=== PATIENT | male | born 1955 | race Caucasian/White ===

== ENCOUNTER 2025-04-13 06:25 | Inpatient (IN) | payer MEDICARE, BC, SELFPAY ==
[2025-04-13] VITALS (9 sets, daily range): BP systolic 123–145; BP diastolic 62–81; PULSE 78–98; RESP 16–20; TEMP 36.4–36.8; O2SAT 90–98
--- NOTE | 2025-04-13 06:39 | PD.EDRME ---
Rapid Medical Screening Exam RME Arrival date/time: 04/13/25 06:25 69-year-old male presents to the emergency department today for complaints of difficulty urinating patient reports having knee replacement approximately 10 days ago. Patient reports that he has had issues with urinating in the past patient does see Dr. Sepulveda urologist in [place] Chief Complaint: Urogenital-Male Vital signs: Vital Signs Temperature 98.3 F 04/13/25 06:32 Pulse Rate 84 04/13/25 06:32 Respiratory Rate 19 04/13/25 06:32 Blood Pressure 129/62 04/13/25 06:32 Pulse Oximetry (%) 98 04/13/25 06:32 Oxygen Delivery Method Room Air 04/13/25 06:32 Vital signs reviewed by provider: Yes Exam: On exam patient appears to be uncomfortable Clinical Impression: Labs and Christensen catheter ordered
[2025-04-13 07:08] LABS: Collection Type, Urine Clean Catch; Squamous Epithelial Cell,Urine 0 /hpf (0-5)
--- NOTE | 2025-04-13 07:09 | EDNOTE_ITS ---
ED Male Genitalurinary RME/HPI General Chief complaint: Urogenital-Male Stated complaint: UNABLE TO URINATE Arrival date/time: 04/13/25 06:25 RME / HPI RME / HPI Narrative: 04/13/25 06:25 69-year-old male presents to the emergency department today for complaints of difficulty urinating patient reports having knee replacement approximately 10 days ago. Patient reports that he has had issues with urinating in the past patient does see Dr. Sepulveda urologist in [place]. MAGAÑA MAIN ED EVALUATION 69 year old male with history of BPH and is s/p total right knee replacement on 04/04/2025 presents to the ED for evaluation of urinary hesitancy and urgency today. States he is having to urinate every 15 minutes and only dribbling small amounts of urine. Accompanied by discomfort to the suprapubic area. Patient r eportedly has had difficulty emptying his bladder since removal of the Christensen catheter he had placed during surgery 9 days ago. States he was started on Cipro for a Christensen infection which he has taken with no change in symptoms. No other associated symptoms reported. Patient states he is under the care of urologist Dr. Sepulveda in [place], [place] and will be scheduling an appointment soon. Exam: On exam patient appears to be uncomfortable Impression: Labs and Christensen catheter ordered Related Data Allergies Allergy/AdvReac Type Severity Reaction Status Date / Time No Known Allergies Allergy Verified 04/13/25 06:45 Review of Systems Review of Systems Systems Reviewed: All systems reviewed, normal except as documented Past Medical History Past Medical History CARDIAC: Positive Hypertension; Negative Congestive Heart Failure RESPIRATORY: Negative Chronic Obstructive Pulmonary Disease (COPD) GENITOURINARY: Positive Benign Prostatic Hyperplasia; Negative Renal Disease ENDOCRINE: Negative Diabetes Mellitus Type 1 or Diabetes Mellitus Type 2 Social History SMOKING STATUS: Never smoker ED Exam Narrative Physical exam: GENERAL APPEARANCE: alert and oriented x 4, well-developed, well-nourished, appears uncomfortable HEENT: Normocephalic, atraumatic; pupils equal, round, reactive to light; EOMI; mucous membranes pink, moist; oropharynx clear NECK: Supple LUNGS: CTABL; no wheezes, no rales, no rhonchi HEART: Regular rate, regular rhythm; normal S1, S2; no murmurs ABDOMEN: mildly distended; normal BS; soft, no tenderness, no guarding, no rebound; no masses, no organomegaly, no hernia BACK: no CVA tenderness EXTREMITIES: atraumatic; no edema NEUROLOGIC: awake; alert and oriented x4; cranial nerves II-XII grossly intact; no focal sensory or motor deficits PSYCHIATRIC: appropriate mood and affect SKIN: warm, dry, normal color; no rashes Course Quality Measures none Orders Category Date Time Status Bedside Blood Glucose Q2HX3 Care 04/13/25 10:50 Active EKG (ED ONLY) *Do not use* NOW Care 04/13/25 08:32 Completed Christensen [Urinary Catheter] NOW Care 04/13/25 06:39 Active Christensen to Leg Bag NOW Care 04/13/25 06:39 Ordered EKG (ED Only) Stat Exams 04/13/25 08:32 Draft CBC Stat Lab 04/13/25 07:58 Completed Comprehensive Metabolic Panel Stat Lab 04/13/25 07:58 Completed Renal Function Panel Stat Lab 04/13/25 11:12 Received UA, C/S IF [Urinalysis, C/S if Indicated] Stat Lab 04/13/25 06:51 Completed Urine Culture Stat Lab 04/13/25 06:51 Received ALBUTEROL RT 0.5ml [Proventil Rt 0.5ml] Med 04/13/25 10:50 Discontinued 10 mg INH X1 ONE Calcium Gluconate 10% Inj Med 04/13/25 08:32 Discontinued 1 gm IV X1 ONE Dextrose 50% Syr [D50w Syringe Abboject] Med 04/13/25 10:51 Discontinued 50 ml IV X1 ONE Glucagon Inj Med 04/13/25 10:50 Active 1 mg IM Q15MIN PRN Insulin Regular Med 04/13/25 10:50 Discontinued 5 unit IV X1 ONE Sod Polystyrene Sulfon Susp [Kayexalate Susp] Med 04/13/25 10:50 Discontinued 30 gm PO X1 ONE Sodium Chloride 0.9% 1000 ml [Ns] 1,000 ml Med 04/13/25 08:32 Discontinued IV 999 mls/hr Sodium Chloride 0.9% 1000 ml [Ns] 1,000 ml Med 04/13/25 09:25 Discontinued IV 999 mls/hr Sodium Chloride Rt Janki 0.9% [NS Rt Janki 0.9%] Med 04/13/25 10:50 Active 3 ml INH PRN PRN Vital Signs Vital signs: Vital Signs Temperature 98.3 F 04/13/25 06:32 Pulse Rate 84 04/13/25 06:32 Respiratory Rate 19 04/13/25 06:32 Blood Pressure 129/62 04/13/25 06:32 Pulse Oximetry (%) 98 04/13/25 06:32 Oxygen Delivery Method Room Air 04/13/25 06:32 Pulse ox is 98% on room air which is adequate. Urogenital - Male MDM Narrative MDM Narrative:: Lynnette Bunch am scribing for and in the presence of Dr. Magaña. Patient data External records reviewed:: [facility] previous records Clinical information provided by:: patient Social determinants that could affect healthcare access:: none Patient has the following chronic illnesses:: BPH and is s/p total right knee replacement on 04/04/2025 How is presenting disease/condition affected by chronic disease/condition?: exacerbated by Evaluation data The following diagnostics were reviewed and interpreted by me:: lab results and EKG tracing(s) (EKG @ 08:45 AM, normal sinus rhythm, rate 86, no acute ischemic changes, no STEMI. ) Lab and/or radiology exams considered but not ordered:: None Interpretation Summary: Hgb 7.8 Labs remarkable for acute renal failure and acute hyperkalemia Potassium 6.3, BUN 60, Creatinine 5.6, eGFR 10 Medications / Prescriptions Medications or Prescriptions considered but not ordered:: none Medication administrations:: Medication Administration History Glucagon (Glucagon Inj 1 Mg Vial) 1 mg IM Q15MIN PRN PRN Reason: BG <70, and no IV access Sodium Chloride (Sodium Chloride Rt Janki 0.9% 3 Ml Nebu) 3 ml INH PRN PRN PRN Reason: SOLN Stop: 05/13/25 10:49 Discontinued Medications Albuterol (Albuterol Rt 2.5 Mg/0.5 Ml Nebu) 10 mg INH X1 ONE Stop: 04/13/25 10:51 Last Admin: 04/13/25 11:15 Dose: 10 mg Documented By: AA Calcium Gluconate (Calcium Gluconate 10% Inj 1 Gm/10 Ml Vial) 1 gm IV X1 ONE Stop: 04/13/25 08:33 Last Admin: 04/13/25 08:44 Dose: 1 gm Documented By: AUSTEN Dextrose (Dextrose 50%-Water Inj 50 Ml Syringe) 50 ml IV X1 ONE Stop: 04/13/25 10:52 Last Admin: 04/13/25 11:20 Dose: 50 ml Documented By: AUSTEN Sodium Chloride (Ns) 1,000 mls @ 999 mls/hr IV .Q1H1M ONE Stop: 04/13/25 09:32 Last Infusion: 04/13/25 09:30 Dose: Infused Documented By: Admin: 04/13/25 08:44 Dose: 999 mls/hr Documented By: AUSTEN Sodium Chloride (Ns) 1,000 mls @ 999 mls/hr IV .Q1H1M ONE Stop: 04/13/25 10:25 Last Infusion: 04/13/25 10:31 Dose: Infused Documented By: Admin: 04/13/25 09:30 Dose: 999 mls/hr Documented By: AUSTEN Insulin Human Regular (Insulin Hum Regular 1 Unit/0.01 Ml (Per Unit)) 5 unit IV X1 ONE Stop: 04/13/25 10:51 Last Admin: 04/13/25 11:22 Dose: 5 unit Documented By: AUSTEN Co-signed By: PRATIBHA Sodium Polystyrene Sulfonate (Sod Polystyrene Sulfon Susp 15 Gm/60 Ml Btl) 30 gm PO X1 ONE Stop: 04/13/25 10:51 Last Admin: 04/13/25 11:20 Dose: 30 gm Documented By: AUSTEN See above Consultations Consultation(s) initiated? (list below): Yes Consultation #1 (Physician, Specialty, Details): See above Diagnosis Urogenital Male Differential Diagnosis: urinary tract infection, acute retention of urine and other (acute renal failure ) Most likely diagnosis given after review of the tests above:: Acute renal failure Hyperkalemia Admission Indicated Admission indicated?: indicated Admission Request Was there a request for admission?: Yes Admission Attestation Admission request attestation: Discussed case with [] from Hospitalist service regarding admission. Discussed patients ED course, exam findings, labs, and radiology results. The Hospitalist [agrees,declines] to accept the patient for admission. Disposition Plan Disposition Plan: Admit Discharge Plan Plan Patient Disposition: Admit Acute Care w/in Hospital Problem List Clinical Impression: Acute renal failure, Acute hyperkalemia Patient/Caregiver Discharge Instructions Print Language: Vietnamese Stand Alone Forms: Eli Award Info., Patient Portal Info Letter
[2025-04-13 07:14] LABS: Bilirubin,Urine 1+ (Negative); Blood,Urine Negative (Negative); Clarity,Urine Clear (Clear/Hazy); Color,Urine Drk-Yellow (Lt Yel-Yel); Glucose, Urine Negative (Negative); Ketones,Urine Negative (Negative); Leukocyte Esterase,Urine Negative (Negative); Nitrite,Urine Positive (Negative); PH,Urine 6.5 (5.0-7.0); Protein,Urine Negative (Neg - Trace); RBC,Urine 4 /hpf (0-3); Specific Gravity,Urine 1.015 (1.001-1.035); Urobilinogen,Urine 2.0 mg/dL (0.0-1.0); WBC,Urine 2 /hpf (0-5)
[2025-04-13 07:18] LABS: Culture Indicated,Urine Yes
[2025-04-13 08:10] LABS: Basophils # (Auto) 0.0 Thou/mm3 (0.0-0.2); Basophils % (Auto) 0 % (0-2.5); Eosinophils # (Auto) 0.0 Thou/mm3 (0.0-0.5); Eosinophils % (Auto) 1 % (0-10); Hematocrit 25.4 % (41.0-53.0); Immature Granulocytes Auto 0.05 Thou/mm3 (0.00-0.00); Lymphocytes # (Auto) 0.5 Thou/mm3 (1.0-4.8); Lymphocytes % (Auto) 7 % (10-50); Mean Corpuscular HGB Conc 30.7 g/dl (31.0-37.0); Mean Corpuscular Hemoglobin 28.8 pg (25.0-35.0); Mean Corpuscular Volume 94 fL (80-100); Monocytes # (Auto) 0.8 Thou/mm3 (0.0-0.8); Monocytes % (Auto) 12 % (0-12); Neutrophils # (Auto) 5.4 Thou/mm3 (1.8-7.7); Neutrophils % (Auto) 80 % (37-80); Nucleated Red Blood Cell # 0.00 Thou/mm3 (0.00-0.00); Nucleated Red Blood Cell % 0 /100 WBC (0); Platelet Count 189 Thou/mm3 (140-440); RDW Standard Deviation 54.5 fL (35.1-43.9); Red Blood Count 2.71 Miln/mm3 (4.50-5.90); White Blood Count 6.8 Thou/mm3 (3.8-10.6)
[2025-04-13 08:17] LABS: Hemoglobin 7.8 g/dL (13.5-16.0)
[2025-04-13 08:30] LABS: Alanine Aminotransferase 8 U/L (10-49); Albumin, Serum 4.1 gm/dL (3.4-4.8); Albumin/Globulin Ratio 1.4 (1.2-2.2); Alkaline Phosphatase 45 U/L (46-116); Anion Gap 9 (7-16); Aspartate Amino Transferase 21 U/L (0-34); BUN/Creatinine Ratio 11 Ratio (12-20); Bilirubin,Total 0.6 mg/dL (0.3-1.2); Blood Urea Nitrogen 60 mg/dL (9-23); Calcium 9.7 mg/dL (8.3-10.6); Calcium (Corrected) 9.7 mg/dL (8.5-10.1); Carbon Dioxide 22.9 mMol/L (20.0-31.0); Chloride 108 mMol/L (98-107); Creatinine (Component) 5.6 mg/dL (0.6-1.3); Globulin 3.0 gm/dL (2.3-3.5); Glucose 127 mg/dL (74-106); Osmolality,Calculated 298 (275-295); Sodium 140 mMol/L (136-145); Total Protein 7.1 gm/dL (5.7-8.2); eGFR 10 See Note
[2025-04-13 08:32] LABS: Potassium 6.3 mMol/L (3.4-5.1)
--- NOTE | 2025-04-13 08:32 | EKG_ITS ---
[facility] Test Date: 2025-04-13 Pat Name: SUSIE BISWAS Department: Room: - Gender: Male [employer] Consultant: : 1955 Requested By: Susy Ibarra Order Number: [id number] Reading MD: Susy Ibarra Measurements Intervals [place] Rate: 86 P: 2 [place]: 133 QRS: 5 QRSD: 87 T: 8 QT: 374 QTc: 448 Interpretive Statements SINUS RHYTHM NONSPECIFIC T-WAVE ABNORMALITY No previous ECG available for comparison /store/S0/[id number].pdf
[2025-04-13] MEDS: CALCIUM GLUCONATE 10% INJ 1 GM/10 ML VIAL IV (08:44)
[2025-04-13] MEDS: SODIUM CHLORIDE 0.9% 1000 ML 1,000 ML 999 ML IV ×2 (08:44→09:30)
[2025-04-13] MEDS: ALBUTEROL RT 2.5 MG/0.5 ML NEBU 10 MG INH (11:15)
[2025-04-13] MEDS: DEXTROSE 50%-WATER INJ 50 ML SYRINGE IV (11:20)
[2025-04-13] MEDS: SOD POLYSTYRENE SULFON SUSP 15 GM/60 ML BTL 30 GM PO (11:20)
[2025-04-13] MEDS: INSULIN HUM REGULAR 1 UNIT/0.01 ML (PER UNIT) 5 UNIT IV (11:22)
--- NOTE | 2025-04-13 11:37 | ESHP_ITS ---
<Statement entered by Maeve Ivan MD - 04/21/25 09:15> I reviewed above note and agree with findings and plans. I have also personally examined the patient with medicine team and went over assessment and plan with medical team including manager of internal and resident physician. <Statement entered by Tj Ta MD - 04/13/25 17:57> Patient was examined and case was reviewed with team including attending physician. Note reviewed, I agree with most of its contents and agree with the patient's care as documented by Dr. Delgado 69 years old male with history of BPH and hypertension who recently had a total right knee replacement on 04/04/25 presented initially to the ED on 04/13/25 for urinary urgency today. He stated since the surgery he was not able to void. Patient continued to complain of trouble voiding and came to the ED. ED physician placed kulkarni catheter which drained about 1200ccs of urine. Labs were significant for hyperkalemia 6.3 and elevated BUN and Creatinine. Hyper K cocktail provided. and repeat labs showed improvement. Will continue to monitor and consider voiding trial and bladder training prior to dcing kulkarni. Case discussed with my attending Dr. Moncho Ta MD PGY-2 Documentation for date of: 04/13/25 HPI History of Present Illness Chief complaint: Unable to urinate History of present illness: Mr Velasquez is a 69 years old male with history of BPH and hypertension who recently had a total right knee replacement on 04/04/25 presented initially to the ED on 04/13/25 for urinary urgency today. He stated since the surgery he had, he was not able to void, even while he was in the PACU. A kulkarni cath was placed then, but since the removal, he had not been able to urinate normally like he used to. He reported that he only had small amounts of urine each time he urinate, and was not able to completely empty his bladder. He denies dysuria, CVA tenderness, fever, or suprapubic tenderness, but does feel constant pressure in that region. He was started on ciprofloxacin for a possible UTI infection recently. He was admitted for urinary retension. ED Course In the ED, Temp 98.3F, HR 84, RR 10. BP 129/62, 98% on RA. WBC 6.8. Hgb 7.8. Na 140, K 6.3, BUN 60. Cr 5.6. A kulkarni cath was promptely inserted with 1.2L drained. He received 2L of NaCl and calcium glucanate x1 while in the ED. On admission, hyperkalemic cocktail was given with Maintance fluid @ 100ml/hr. ROS * Constitutional: a/o x 3, denies fever/chills. * GI: Denies nausea, vomiting. * CV: Denies chest pain or palpitations. * Resp: Denies SOB, dyspnea * : Denies dysuria, CVA tenderness, suprapubic tenderness. * Neuro: Denies dizziness, no focal deficits. Past Medical History * Hypertension * BPH Social History * Lives at home, independent baseline. * Denies smoking, drug, or alcohol use Surgical History * Right total knee replacement Allergies * NKDA Home Meds * Acteminophen 500mg PO QD PRN * ASA 81mg PO QD * Ciprofloxacin 500mg PO BID * dapsone 25mg PO TID * Lisinopril 20mg PO QD * Omeprazole 20mg PO QD * Senokot 17.2mg PO * tamsilosin 0.8mg PO QD Exam Vital Signs Temp Pulse Resp BP Pulse Ox O2 Del Method O2 Flow Rate 98.1 F 78 18 143/74 H 98 Nasal Cannula 2 04/13/25 08:58 04/13/25 11:18 04/13/25 11:18 04/13/25 08:58 04/13/25 11:18 04/13/25 08:58 04/13/25 08:58 Narrative Exam General: Awake and in no acute distress. A/O x 3. HEENT: Normocephalic, atraumatic, mucous membranes moist. Heart: Regular rate and rhythm Lungs: Clear to auscultation with no wheezing or crackles. Abdomen: Soft, nondistended, nontender. No guarding or rebound tenderness. Pressure to suprapubic region Neurologic: Alert and oriented x3, no gross neurological deficit, and patient able to move all 4 extremities. Extremities:No pitting edema in lower extremities. Skin: No rash. No ecchymoses. Results: Labs 04/13/25 07:58 04/13/25 14:20 Labs: Short CBC 04/13/25 Range/Units 07:58 WBC 6.8 (3.8-10.6) Thou/mm3 Hgb 7.8 L (13.5-16.0) g/dL Hct 25.4 L (41.0-53.0) % Plt Count 189 (140-440) Thou/mm3 [facility] 04/13/25 07:58 Sodium 140 Potassium 6.3 H* Chloride 108 H Carbon Dioxide 22.9 BUN 60 H Creatinine 5.6 H* Glucose 127 H Calcium 9.7 Liver Function 04/13/25 Range/Units 07:58 Total Bilirubin 0.6 (0.3-1.2) mg/dL AST 21 (0-34) U/L ALT 8 L (10-49) U/L Alkaline Phosphatase 45 L (46-116) U/L Albumin 4.1 (3.4-4.8) gm/dL Urine 04/13/25 Range/Units 06:51 Urine Color Drk-Yellow A (Lt Yel-Yel) Urine Clarity Clear (Clear/Hazy) Urine pH 6.5 (5.0-7.0) Ur Specific [place] 1.015 (1.001-1.035) Urine Protein Negative (Neg - Trace) Urine Glucose (UA) Negative (Negative) Quality Measures Quality Measures none Advance care planning discussed with:: patient Medications Home Medications and Allergies Home Medications ?Medication ?Instructions ?Recorded ?Confirmed ?Type acetaminophen 500 mg capsule 500 mg PO DAILY PRN pain 04/13/25 04/13/25 History aspirin 81 mg capsule 81 mg PO QDAY 04/13/2504/13 History ciprofloxacin HCl 500 mg tablet 500 mg PO BID 04/13/25 04/13/25 History dapsone 25 mg tablet 25 mg PO TID 04/13/25 History lisinopril 20 mg tablet 20 mg PO DAILY 04/13/2503/28 History omeprazole 20 mg capsule,delayed 20 mg PO QDAY 5 04/13/25 History release sennosides 8.6 mg tablet (Senokot) 17.2 mg PO QDAY 04/13/25 History tamsulosin 0.4 mg capsule 0.8 mg PO DAILY 04/13/25 History Allergies Allergy/AdvReac Type Severity Reaction Status Date / Time No Known Allergies Allergy Verified 04/13/25 06:45 Visit Medications Glucagon (Glucagon Inj 1 Mg Vial) 1 mg IM Q15MIN PRN PRN Reason: BG <70, and no IV access Heparin Sodium (Porcine) (Heparin Sod Inj 5000 Unit/Ml Vial) 5,000 unit SC BID MYA Stop: 04/27/25 20:59 Sodium Chloride (Sodium Chloride Rt Janki 0.9% 3 Ml Nebu) 3 ml INH PRN PRN PRN Reason: SOLN Stop: 05/13/25 10:49 Discontinued Medications Albuterol (Albuterol Rt 2.5 Mg/0.5 Ml Nebu) 10 mg INH X1 ONE Stop: 04/13/25 10:51 Last Admin: 04/13/25 11:15 Dose: 10 mg Calcium Gluconate (Calcium Gluconate 10% Inj 1 Gm/10 Ml Vial) 1 gm IV X1 ONE Stop: 04/13/25 08:33 Last Admin: 04/13/25 08:44 Dose: 1 gm Dextrose (Dextrose 50%-Water Inj 50 Ml Syringe) 50 ml IV X1 ONE Stop: 04/13/25 10:52 Last Admin: 04/13/25 11:20 Dose: 50 ml Sodium Chloride (Ns) 1,000 mls @ 999 mls/hr IV .Q1H1M ONE Stop: 04/13/25 09:32 Last Infusion: 04/13/25 09:30 Dose: Infused Sodium Chloride (Ns) 1,000 mls @ 999 mls/hr IV .Q1H1M ONE Stop: 04/13/25 10:25 Last Infusion: 04/13/25 10:31 Dose: Infused Insulin Human Regular (Insulin Hum Regular 1 Unit/0.01 Ml (Per Unit)) 5 unit IV X1 ONE Stop: 04/13/25 10:51 Last Admin: 04/13/25 11:22 Dose: 5 unit Sodium Polystyrene Sulfonate (Sod Polystyrene Sulfon Susp 15 Gm/60 Ml Btl) 30 gm PO X1 ONE Stop: 04/13/25 10:51 Last Admin: 04/13/25 11:20 Dose: 30 gm Assessment & Plan Plan Mr Velasquez is a 69 years old male with history of BPH and hypertension who recently had a total right knee replacement on 04/04/25 presented initially to the ED on 04/13/25 for urinary urgency. He was admitted for urinary retension. #BPH #Post-operative urinary retention #Urinary urgency #Urinary hesitancy #Polyuria #Acute hyperkalemia - downtrending #Acute kidney injury - improving Unable to void since surgery 04/04/25. Initial K on admission 6.3. Cr 5.6. Initial kulkarni cath insertion drained 1.2L. - Maintaince fluid @ 100ml/hr - Keep kulkarni cath, august bladder train tmr - Strict I/Os - monitor urine output - daily labs, monitor chemistry - renal dose med, avoid nephrotoxin - no recent contrast or offending mediations - Continue home tamulosin #Hypertension - chronic medical problem - hold lisinopril for now until resolution of HERBEI Health maintenance Dispo: Pending resolution of HERBIE, bladder train. DVT prophylaxis: HEPARIN GI prophylaxis: Protonix 20 Antibiotics: N/A Bowel Regimen: N/A Diet: Renal diet Lines: Peripheral IV, kulkarni catheter Code status: Full code Case discussed with my senior resident Dr. Espinoza Case discussed with my attending Dr. Moncho Delgado, PGY 1
[2025-04-13 11:59] LABS: Albumin, Serum 4.0 gm/dL (3.4-4.8); Anion Gap 11 (7-16); BUN/Creatinine Ratio 11 Ratio (12-20); Blood Urea Nitrogen 43 mg/dL (9-23); Calcium 9.1 mg/dL (8.3-10.6); Calcium (Corrected) 9.1 mg/dL (8.5-10.1); Carbon Dioxide 22.2 mMol/L (20.0-31.0); Chloride 111 mMol/L (98-107); Creatinine (Component) 3.9 mg/dL (0.6-1.3); Glucose 115 mg/dL (74-106); Osmolality,Calculated 298 (275-295); Phosphorous 3.7 mg/dL (2.4-5.1); Sodium 144 mMol/L (136-145); eGFR 16 See Note
[2025-04-13 12:00] LABS: Potassium 6.1 mMol/L (3.4-5.1)
[2025-04-13] MEDS: SODIUM CHLORIDE 0.9% 1000 ML 1,000 ML 100 ML IV (14:40)
[2025-04-13 15:06] LABS: Albumin, Serum 4.1 gm/dL (3.4-4.8); Anion Gap 11 (7-16); BUN/Creatinine Ratio 12 Ratio (12-20); Blood Urea Nitrogen 39 mg/dL (9-23); Calcium 9.2 mg/dL (8.3-10.6); Calcium (Corrected) 9.2 mg/dL (8.5-10.1); Carbon Dioxide 22.2 mMol/L (20.0-31.0); Chloride 112 mMol/L (98-107); Creatinine (Component) 3.2 mg/dL (0.6-1.3); Glucose 125 mg/dL (74-106); Osmolality,Calculated 299 (275-295); Phosphorous 3.6 mg/dL (2.4-5.1); Potassium 5.0 mMol/L (3.4-5.1); Sodium 145 mMol/L (136-145); eGFR 20 See Note
[2025-04-13] MEDS: TAMSULOSIN HCL 0.4 MG CAPSULE PO (20:47)
[2025-04-13] MEDS: HEPARIN SOD INJ 5000 UNIT/ML VIAL SC (20:51)
[2025-04-14] VITALS: BP 156/83; PULSE 79; PULSE 80; RESP 17; TEMP 36.9; O2SAT 95
[2025-04-14 04:00] VITALS: BP 156/84; PULSE 79; PULSE 80; RESP 15; TEMP 36.3; O2SAT 94
[2025-04-14 05:36] LABS: Basophils # (Auto) 0.1 Thou/mm3 (0.0-0.2); Basophils % (Auto) 1 % (0-2.5); Eosinophils # (Auto) 0.2 Thou/mm3 (0.0-0.5); Eosinophils % (Auto) 3 % (0-10); Hematocrit 24.8 % (41.0-53.0); Hemoglobin 7.7 g/dL (13.5-16.0); Immature Granulocytes Auto 0.04 Thou/mm3 (0.00-0.00); Lymphocytes # (Auto) 1.0 Thou/mm3 (1.0-4.8); Lymphocytes % (Auto) 18 % (10-50); Mean Corpuscular HGB Conc 31.0 g/dl (31.0-37.0); Mean Corpuscular Hemoglobin 29.3 pg (25.0-35.0); Mean Corpuscular Volume 94 fL (80-100); Monocytes # (Auto) 0.7 Thou/mm3 (0.0-0.8); Monocytes % (Auto) 12 % (0-12); Neutrophils # (Auto) 3.8 Thou/mm3 (1.8-7.7); Neutrophils % (Auto) 66 % (37-80); Nucleated Red Blood Cell # 0.00 Thou/mm3 (0.00-0.00); Nucleated Red Blood Cell % 0 /100 WBC (0); Platelet Count 193 Thou/mm3 (140-440); RDW Standard Deviation 55.5 fL (35.1-43.9); Red Blood Count 2.63 Miln/mm3 (4.50-5.90); White Blood Count 5.7 Thou/mm3 (3.8-10.6)
[2025-04-14 06:22] LABS: Alanine Aminotransferase 14 U/L (10-49); Albumin, Serum 3.9 gm/dL (3.4-4.8); Albumin/Globulin Ratio 1.5 (1.2-2.2); Alkaline Phosphatase 42 U/L (46-116); Anion Gap 12 (7-16); Aspartate Amino Transferase 27 U/L (0-34); BUN/Creatinine Ratio 14 Ratio (12-20); Bilirubin,Total 0.5 mg/dL (0.3-1.2); Blood Urea Nitrogen 20 mg/dL (9-23); Calcium 9.0 mg/dL (8.3-10.6); Calcium (Corrected) 9.1 mg/dL (8.5-10.1); Carbon Dioxide 21.5 mMol/L (20.0-31.0); Chloride 111 mMol/L (98-107); Creatinine (Component) 1.4 mg/dL (0.6-1.3); Globulin 2.6 gm/dL (2.3-3.5); Glucose 101 mg/dL (74-106); Magnesium 1.8 mg/dL (1.6-2.6); Osmolality,Calculated 289 (275-295); Phosphorous 2.8 mg/dL (2.4-5.1); Potassium 4.7 mMol/L (3.4-5.1); Sodium 144 mMol/L (136-145); Total Protein 6.5 gm/dL (5.7-8.2); eGFR 54 See Note
[2025-04-14 08:00] VITALS: BP 125/78; PULSE 84; RESP 19; TEMP 36.3; O2SAT 95
[2025-04-14] MEDS: SODIUM CHLORIDE 0.9% 1000 ML 1,000 ML 80 ML IV (08:22)
[2025-04-14] MEDS: HEPARIN SOD INJ 5000 UNIT/ML VIAL SC (08:24)
[2025-04-14] MEDS: PANTOPRAZOLE 40 MG TABLET PO (08:25)
[2025-04-14] MEDS: ASPIRIN 81 MG CHEW PO (08:25)
[2025-04-14] MEDS: TAMSULOSIN HCL 0.4 MG CAPSULE PO (08:25)
--- NOTE | 2025-04-14 11:17 | PC.NURSE ---
patient has discharge orders I still need to remove folley and see if patient can urinate
[2025-04-14 12:00] VITALS: BP 141/82; PULSE 99; RESP 18; TEMP 36.4; O2SAT 93
--- NOTE | 2025-04-14 13:03 | PC.NURSE ---
Caught patient trying to take IV out and getting out of bed
--- NOTE | 2025-04-14 14:57 | PC.NURSE ---
bladder scanned patient he has 158 ml in bladder
[2025-04-14] MEDS: ACETAMINOPHEN 325 MG TABLET 650 MG PO (15:15)
--- NOTE | 2025-04-14 15:43 | ESDS_ITS ---
<Statement entered by Tj Ta MD - 04/14/25 16:01> Patient was examined and case was reviewed with team including attending physician. Note reviewed, I agree with most of its contents and agree with the patient's care as documented by Dr. Danny Ta MD PGY-2 Planned Discharge Date 04/14/25 DS: Providers Provider Date of admission: 04/13/25 11:37 Primary care physician: Mc Harden MD Admitting Provider: Maeve Ivan MD Attending Provider on Admission: Maeve Ivan MD Attending Provider on DC: Willis Quintana MD Discharging Provider: Derrick Delgado DO Anticipated date of discharge: 04/14/25 DS: Diagnosis Problem List Completed Was Problem List Reviewed/Reconciled?: Yes Hospital Course Hospital Course Hospital course: Mr eVlasquez is a 69 years old male with history of BPH and hypertension who recently had a total right knee replacement on 04/04/25 presented initially to the ED on 04/13/25 for urinary urgency today. He stated since the surgery he had on 04/04/25, he was not able to void. A kulkarni cath was placed outpatient but since the removal, he had not been able to urinate normally like he used to. He reported that he only had small amounts of urine each time he urinate, and was not able to completely empty his bladder. Patient does follow up with his urologist, Dr. Sepulveda, for his BPH in [place]. He denied dysuria, CVA tenderness, fever, or suprapubic tenderness, but was prescribed ciprofloxacin by his PCP due to possible UTI. In the ED, he was found to have potassium of 6.3, BUN 60, and of Cr 5.6. A kulkarni cath was promptly inserted with 1.2L of urine drained. He received 2L of NaCl and calcium glucanate x1 while in the ED to treat his HERBIE and lower his potassium. On admission, hyperkalemic cocktail was given and repea t lab revealed potassium of 5.0 with creatinine of 3.2. He received an additional liter of fluid overnight. On day of discharge, his potassium had returned to 4.7 and creatinine 1.4. Kulkarni catheter was removed, but patient was not able to void after observing for 6 hours. Bedside bladder scan revealed urine volume of ~400mL. At that point, patient expressed desire to be discharged home. Given that patient is medically stable, patient was advised to be discharged home with a kulkarni catheter in place and follow up closely with his urologist in [place]. Both the patient and his were amenable to the discharge plan. At this time, patient is medically and physically stable for discharge for home with Kulkarni catheter. All questions and concerns addressed, plan of care discussed with patient, return precautions given. Diagnosis: #BPH #Post-operative urinary retention #Urinary urgency #Urinary hesitancy #Polyuria #Acute hyperkalemia - downtrending #Acute kidney injury - improving #Hypertension Discharge Plan: Follow up with primary care physician within 1 week of discharge Instructions have been explained to the patient with regards to their medications and how to take them. Patient was able to explain back to physician and nursing staff how to take their medications. Patient expressed understanding with instructions. Please follow up with your Urologist in [place] as soon as possible, ideally within 1 week after discharge. Please finish your antibiotic course as prescribed by your primary care physician. Continue to take the rest of your medications as prescribed by your primary care physician. Patient has been explained that should any symptoms recur or worsen patient is instructed to return to the Emergency Department. Case discussed with my senior resident Dr. Espinoza Case discussed with my attending Dr. Lilian Delgado, PGY 1 Status at Discharge Overall status at discharge: patient is back to baseline (Patient will follow up with his urologist in [place] for further management of his urinary retention. ) Time Spent with Patient Time attestation: Total time spent providing and/or coordinating discharge services: Time spent: Greater than 30 minutes Exam Vital Signs Temp Pulse Resp BP Pulse Ox O2 Del Method O2 Flow Rate 97.5 F 99 18 141/82 H 93 L Room Air 2 04/14/25 12:00 04/14/25 12:00 04/14/25 12:00 04/14/25 12:00 04/14/25 12:04/14/25 08:00 04/13/25 12:02 Narrative Exam General: Awake and in no acute distress. A/O x 3. HEENT: Normocephalic, atraumatic, mucous membranes moist. Heart: Regular rate and rhythm. No M/R/G Lungs: Clear to auscultation with no wheezing or crackles. Abdomen: Soft, nondistended, nontender. No guarding or rebound tenderness. Kulkarni catheter in place for discharge. Neurologic: Alert and oriented x3, no gross neurological deficit, and patient able to move all 4 extremities. Extremities:No pitting edema in lower extremities. Skin: No rash. No ecchymoses. Discharge Plan Plan Patient Disposition: HOME (Self Care) Care Plan Goals: Follow up with primary care physician within 1 week of discharge Instructions have been explained to the patient with regards to their medications and how to take them. Patient was able to explain back to physician and nursing staff how to take their medications. Patient expressed understanding with instructions. Please follow up with your Urologist in [place] as soon as possible, ideally within 1 week after discharge. Please finish your antibiotic course as prescribed by your primary care physician. Continue to take the rest of your medications as prescribed by your primary care physician. Patient has been explained that should any symptoms recur or worsen patient is instructed to return to the Emergency Department. Prescriptions/Referrals Prescriptions/Med Rec: Continued ciprofloxacin HCl 500 mg tablet 500 mg PO BID Patient Comments: TAKE 1 TABLET BY MOUTH TWICE A DAY lisinopril 20 mg tablet 20 mg PO DAILY Patient Comments: TAKE 1 TABLET BY MOUTH EVERY DAY tamsulosin 0.4 mg capsule 0.8 mg PO DAILY Patient Comments: TAKE 2 CAPSULES BY MOUTH EVERY DAY dapsone 25 mg tablet 25 mg PO TID Patient Comments: TAKE 3 TABLETS BY MOUTH EVERY DAY. Patient states he takes two tablets a day and will take a third dose with flare ups acetaminophen 500 mg capsule 500 mg PO DAILY PRN (Reason: pain) omeprazole 20 mg capsule,delayed release(DR/EC) 20 mg PO QDAY Patient Comments: Patient takes half a tablet Qday aspirin 81 mg capsule 81 mg PO QDAY sennosides [Senokot] 8.6 mg tablet 17.2 mg PO QDAY Referrals: Mc Harden MD [Primary Care Provider] Patient/Caregiver Discharge Instructions Education Materials: Anatomy of the Male Urinary Tract, ED Urinary Retention, Male Print Language: Emirati Stand Alone Forms: [employer] Award Info., Patient Portal Info Letter Discharge Order Discharge Orders: Discharge (Routine); Ordered 04/14/25 Ordered By: Derrick [facility] Quality Discharge Quality Measures none Attestestation Attestation I have examined the patient, reviewed labs and imaging findings, discussed the case with the resident(s), and reviewed entered orders. I agree with the plan of care as outlined in this note. Time Spent: [address] Lilian MD
--- NOTE | 2025-04-14 16:55 | PC.NURSE ---
Had use a 16 bruneian folley kit. I used a 14 bruneian tip to insert.
== END 2025-04-14 17:55 | disposition home or self-care (01) | DRG 726 ==
LOC: SERX 06:59 → SERHOLD 11:46 → S3SX 14:38
PROVIDERS: Nurse Practitioner Primary Care; Student in an Organized Health Care Education/Training Program; Admitting Provider Internal Medicine; Emergency Provider Emergency Medicine; PCP Internal Medicine; Visit Provider Internal Medicine
DX: N40.1 Benign prostatic hyperplasia with lower urinary tract symptoms (principal); N17.9 Acute kidney failure, unspecified; R39.11 Hesitancy of micturition; I10 Essential (primary) hypertension; R39.15 Urgency of urination; R35.89 Other polyuria; R33.8 Other retention of urine; E87.5 Hyperkalemia; Z79.82 Long term (current) use of aspirin; Z96.651 Presence of right artificial knee joint
CPT/HCPCS: 36415; 51702; 80053; 80069; 81001; 83735; 84100; 84153; 85025; 87086; 93005; 93225; 94640; 96360; 96361; 99284; A4314; J0612; J1644; J1815; J7030; J7602; A9270; J7611